=== PATIENT | female | born 1980 | race Caucasian/White ===

== ENCOUNTER 2017-11-06 17:08 | Inpatient (IN) | payer BC ==
[2017-11-06] MEDS ORDERED: Sodium Chloride 0.9% 10 ML Syringe FLUSH PRN (18:02)
[2017-11-06] MEDS ORDERED: Ondansetron 4 MG/2 ML SDV IV PRN (18:02)
--- NOTE | 2017-11-06 18:51 | PCM.LDHP ---
L&D History of Present Illness - General Date of Service: 11/06/17 Admit Problem/Dx: Patient Status Order with Admit Dx/Problem 11/06/17 18:02 Patient Status [ADT] Routine Admission Diagnosis/Problem Admission Diagnosis/Problem Rhabdomyolysis Source of Information: Patient History Limitations: Reports: No Limitations - History of Present Illness Introduction:: Patient is a 37-year-old 002 female at 16 weeks and 3 days (HUE 04/20/2018) who presented to clinic after having worsening muscle soreness. Reports that this muscle soreness started on Friday after she did some resistance band workouts. She first started noticing some of the soreness in the evening. Worsened over the last several days and has had mild to moderate whole-body muscle soreness. The pain is worst in her right arm and she has had difficulty bending that arm. She is also noticed some decreased weakness in that arm. She has been drinking plenty of water and this has not helped with her symptoms. She denies any fevers or chills. Denies any pain or difficulty with swallowing. Denies any shortness of breath or difficulty with breathing. Denies any significant leg muscle weakness and feels steady with ambulation. She had labs drawn in the clinic today that showed an elevated creatine kinase level of 4400. Patient has never had anything similar to this in the past. She did have mild compartment syndrome in left lower leg in June 2016 after she had a fracture of the tibia that was present for 1.5 weeks or so. No other complications with this except for advancement age. She reports that she had genetic screening testing performed at approximately 9 weeks but the fraction of DNA was too low to be analyzed. She is having this test repeated at this time but results have not returned. Patient has routine care with Dr. Cameron at the [facility] in [place], [place]. She reports that she denies feeling some movement. Denies any abdominal pain, contractions or pelvic cramping. Denies any leaking fluid or vaginal bleeding. Quality: Reports: Ache, Pressure, Throbbing Severity: Moderate Context: Reports: Lifting, Exertion. Denies: Trauma Improves with: Reports: Immobilization, Rest Worsens with: Reports: Movement Past Medical History - Past Surgical History Musculoskeletal Surgical History: Reports: Other (See Below) (Bunion surgery) Social & Family History - Family History Family Medical History: Noncontributory - Tobacco Use Smoking Status *Q: Never Smoker - Alcohol Use Alcohol Use History: No - Recreational Drug Use Recreational Drug Use: No - Living Situation & Occupation Occupation: Employed H&P Review of Systems - Review of Systems: Review Of Systems: See Below General: Reports: Weakness. Denies: Fever, Chills, Malaise HEENT: Denies: Visual Changes Pulmonary: Denies: Shortness of Breath, Wheezing Cardiovascular: Denies: Chest Pain, Palpitations, Lightheadedness Gastrointestinal: Denies: Abdominal Pain, Constipation, Diarrhea, Difficulty Swallowing, Nausea, Vomiting Genitourinary: Denies: Dysuria, Frequency, Burning, Pain, Urgency Musculoskeletal: Reports: Muscle Pain (Whole body but worst and right upper arm) . Denies: Joint Pain Skin: Denies: Rash, Lesions Psychiatric: Denies: Confusion Neurological: Denies: Dizziness, Headache, Difficulty Walking L&D Exam - Exam Exam: See Below - OB Specific Contraction Duration (sec): None Contraction Frequency (min): None Movement: Active Heart Tones: Present Heart Tones per Min: 145 - Exam General: Alert, Oriented, Cooperative HEENT: Conjunctiva Clear, EOMI Neck: Supple, Trachea Midline Lungs: Clear to Auscultation, Normal Respiratory Effort Cardiovascular: Regular Rate, Regular Rhythm GI/Abdominal Exam: Soft, Non-Tender, No Distention Back Exam: Normal Inspection, Full Range of Motion. No: CVA Tenderness (L), CVA Tenderness (R) Extremities: Normal Inspection, Normal Range of Motion, No Pedal Edema, Other ( Decreased muscle strength with extension and flexion at right elbow, remainder of extremities with normal strength) Skin: Warm, Dry Psychiatric: Alert, Normal Affect, Normal Mood - Patient Data Lab Results Last 24 hrs: CBC 11/06/2017 at 12: 40 p.m. WBC: 6.58 Hemoglobin: Total 0.0 Hematocrit: 34.7 Platelets: 201 CMP Sodium: 140 Potassium: 3.6 Chloride: 105 Carbon dioxide: 23 BUN: 10 Creatinine: 0.6 Calcium: 9.0 Albumin: 3.4 AST 89 ALT 41 Alkaline phosphatase: 67 Creatine kinase: 4487 - Problem List (1) Rhabdomyolysis SNOMED Code(s): 467269782 ICD Code: M62.82 - RHABDOMYOLYSIS Status: Acute Current Visit: Yes (2) 17 weeks gestation of SNOMED Code(s): 83826401 ICD Code: Z3A.17 - 17 WEEKS GESTATION OF Status: Acute Current Visit: Yes (3) AMA (advanced maternal age) multigravida 35+ SNOMED Code(s): 879597785 ICD Code: O09.529 - SUPERVISION OF ELDERLY MULTIGRAVIDA, UNSPECIFIED TRIMESTER Status: Acute Current Visit: Yes Problem List Initiated/Reviewed/Updated: Yes Orders Last 24hrs: Active Orders 24 hr Category Date Time Status Patient Status [ADT] Routine ADT 11/06/17 18:02 Ordered Heart Tones [RC] Q4HR Care 11/06/17 18:05 Ordered May Shower [RC] ASDIRECTED Care 11/06/17 18:02 Ordered Notify Provider Vital Signs [RC] ASDIRECTED Care 11/06/17 18:06 Ordered Notify Provider [RC] PRN Care 11/06/17 18:02 Ordered Peripheral IV Care [RC] . DIRECTED Care 11/06/17 18:07 Ordered Up ad Sarah [RC] ASDIRECTED Care 11/06/17 18:02 Ordered Vital Signs [RC] PER UNIT ROUTINE Care 11/06/17 18:02 Ordered Regular Diet [DIET] Diet 11/06/17 Dinner Ordered BMP [BASIC METABOLIC PANEL,BMP] [CHEM] Timed Lab 11/07/17 08:00 Ordered CBC WITH AUTO DIFF [HEME] Timed Lab 11/07/17 08:00 Ordered CREATINE KINASE,CK [CHEM] Timed Lab 11/07/17 02:00 Ordered CREATINE KINASE,CK [CHEM] Timed Lab 11/07/17 08:00 Ordered URINALYSIS W/MICROSCOPIC [UA W/MICROSCOPIC] [URIN] Lab 11/06/17 18:35 Uncollected Routine Lactated Ringers [Ringers, Lactated] 1,000 ml Med 11/06/17 18:15 Ordered IV ASDIRECTED Ondansetron [Zofran] Med 11/06/17 18:02 Ordered 4 mg IV Q4H PRN Vit with Ca/FA/Iron [ Plus Iron] Med 11/07/17 09:00 Ordered 1 each PO DAILY Sodium Chloride 0.9% [Saline Flush] Med 11/06/17 18:02 Ordered 10 ml FLUSH ASDIRECTED PRN Peripheral IV Insertion Adult [OM.PC] Routine Oth 11/06/17 18:02 Ordered Resuscitation Status Routine Resus Stat 11/06/17 18:02 Ordered Medication Orders Lactated Ringer's (Ringers, Lactated) 1,000 mls @ 300 mls/hr IV ASDIRECTED JULIÁN Stop: 11/07/17 21:34 Ondansetron HCl (Zofran) 4 mg IV Q4H PRN PRN Reason: Nausea/Vomiting Prenat Multivit/Engineering Project Manager/Iron/Folic Ac ( Plus Iron) 1 each PO DAILY JULIÁN Sodium Chloride (Saline Flush) 10 ml FLUSH ASDIRECTED PRN PRN Reason: Keep Vein Open Assessment/Plan Comment:: * 1. Rhabdomyolysis - most likely diagnosis based on elevated creatine kinase of 4487. Possible that this is a result of exercise induced rhabdomyolysis from 11/04/2017, that may have been exacerbated due to hypokalemia. This is possible due to increased risk of hypokalemia induced rhabdomyolysis and . Is also possible that she may have had a viral illness that led to this although patient is not having any symptoms of a viral illness other than the rhabdomyolysis. At this time recommend for patient to have decreased physical activity with mostly bed rest with up to the bathroom. We will start an IV and give aggressive fluid hydration with lactated Ringer's at 300 mL/ hour. Plan is to recheck creatine kinase at 0200 on 11/07/2017 and possibly continue IV fluid rehydration throughout the night versus aggressive oral rehydration. Likely plan to continue IV as patient may not be able to have increased amounts oral rehydration during the night as she will possibly be sleeping at that time. Will plan to recheck labs including CBC, CMP and creatine kinase tomorrow morning at 0800. If creatine kinase level is below 1000 will plan to discharge at that time with recommendations for decreased physical activity for short while and increased oral rehydration. If creatine kinase level is increased at 0200 then will give 1 L of D5W with 3 ampules of sodium bicarbonate at 300 mL/h. * 2. - patient is 16 weeks 3 days by stated HUE of 04/20/2018. Continue on vitamin. Will check heart tones every 4 hours while she is hospitalized. No other significant concerns with the at this time. Will discuss with patient's INSURANCE BROKER, Dr. Cameron, when she would like to see her next and if there is any additional labs that she would like us to run before that appointment when patient is discharged. Patient's next scheduled appointment is on approximately 11/24/2017. Lauri Moreno M.D. 7:09 PM 11/06/2017
[2017-11-06] MEDS: Lactated Ringers 1,000 ML IV SCH ×2 (21:34→21:35)
[2017-11-07] MEDS ORDERED: Lactated Ringers 1,000 ML IV SCH (03:30)
[2017-11-07] MEDS ORDERED: Acetaminophen 325 MG Tab PO PRN (04:01)
[2017-11-07] MEDS ORDERED: Sodium Bicarbonate 150 MEQ in Dextrose 5% in Water 1,000 ML IV SCH ×2 (05:00)
--- NOTE | 2017-11-07 08:53 | PCM.SN ---
- Free Text/Narrative Note: Daily Progress Note Subjective: Patient reports feeling well overall. Pain in arm improved from last night but still feels sore. Continues to have whole body soreness. Tolerating regular diet. Voiding without difficulty. Ambulating without difficulty. Reports good movement. Denies any abdominal cramping, pelvic cramping or pelvic pain. Denies any vaginal bleeding or leakage of fluid. Objective: Vitals Vital Signs - 24 hr 11/06/17 11/06/17 18:02 19:37 Temperature 36.7 C Pulse, 78 Peripheral Respiratory 16 Rate Blood Pressure 122/79 O2 Sat by Pulse 100 Oximetry heart tones: 150s over night Weight: 76.204 kg -> 77.564 kg (11/07/17 AM) I/O: Intake & Output 11/06/17 11/07/17 11/07/17 22:59 06:59 14:59 Intake Total 3650 Balance 3650 Gen: [No acute distress, alert and oriented] Lungs: [Clear to auscultation bilaterally] Heart: [Regular rate and rhythm] Abdomen: Soft, no tenderness, nondistended Extremities: Decreased range of motion of flexion and extension at the right elbow, mild tenderness in upper arm, remainder of extremities overall nontender Assesment/Plan: 37-year-old at 16 weeks 4 days with non-traumatic rhabdomyolysis * Doing well overall * Continue to closely monitor I's and O's and the patient's weight for concern for possible fluid overload. * Patient with elevation of creatine kinase from 6928-8544 over night. Rechecked this a.m. Result pending at this time. Patient currently being treated with D5W with 3 ampules of sodium bicarbonate added to the solution running at 300 mL/h. Will transition to lactated Ringer's once the 1 L of D5W is completed. * Patient with mild hypokalemia. We will give oral replacement with potassium chloride. * Monitor vitals and heart tones every 4 hours * Anticipate discharge home with drop of creatine kinase to less than 1000 Lauri Moreno MD 10:11 AM 11/07/17
[2017-11-07] MEDS: Prenatal Multivitamin with Calcium/Folic Acid/Iron Tab PO SCH (09:24)
[2017-11-07] MEDS: Lactated Ringers 1,000 ML IV SCH ×3 (09:25→16:04)
[2017-11-07] MEDS: Potassium Chloride 20 MEQ Tab.ER PO SCH ×3 (13:29→23:16)
--- NOTE | 2017-11-07 17:44 | PCM.CONS ---
H&P History of Present Illness - General Date of Service: 11/07/17 Admit Problem/Dx: Patient Status Order with Admit Dx/Problem 11/06/17 18:02 Patient Status [ADT] Routine Admission Diagnosis/Problem Admission Diagnosis/Problem Rhabdomyolysis Source of Information: Patient, Provider, RN, RN Notes Reviewed History Limitations: Reports: No Limitations - History of Present Illness Initial Comments - Free Text/Narative: This is a 37 yo 17th weeks white female ( 002) who came in with complaints of worsening muscle aches/soreness and was found to have a significant CK level of 4400. She was admitted for acute rhabdomyolysis due to excised induced. Patient was admitted yesterday and currently adequately hydrating. Hospital Medicine was consulted for co-management of this patient. 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: Musculoskeletal History: Reports: Other (See Below) Other Musculoskeletal History: see admission diag - Past Surgical History Musculoskeletal Surgical History: Reports: Other (See Below) (Bunion surgery) Social & Family History - Family History Family Medical History: Noncontributory - Tobacco Use Smoking Status *Q: Never Smoker Second Hand Smoke Exposure: No - Caffeine Use Caffeine Use: Reports: Coffee Other Caffeine Use: 1 per day - Recreational Drug Use Recreational Drug Use: No - Living Situation & Occupation Occupation: Employed H&P Review of Systems - Review of Systems: Review Of Systems: See Below General: Denies: Fever, Chills, Malaise, Weakness, Fatigue HEENT: Reports: No Symptoms Pulmonary: Denies: Shortness of Breath Cardiovascular: Denies: Chest Pain, Palpitations, Edema Gastrointestinal: Denies: Abdominal Pain, Constipation, Diarrhea, Decreased Appetite, Nausea, Vomiting Genitourinary: Denies: Dysuria, Burning, Pain, Hematuria, Discharge Musculoskeletal: Reports: Other (Muscle aches/sore on upper extremity) Skin: Denies: Pallor, Diaphoresis, Bruising, Pruritis, Erythema Psychiatric: Denies: Depression, Anxiety, Agitation, Hallucinations Neurological: Denies: Confusion, Difficulty Walking, Weakness, Gait Disturbance Hematologic/Lymphatic: Reports: No Symptoms Immunologic: Reports: No Symptoms Exam - Exam Exam: See Below - Vital Signs Vital Signs: Last Vital Signs Temp 37.3 C 11/07/17 16:08 Pulse 85 11/07/17 16:08 Resp 18 11/07/17 16:08 BP 128/72 11/07/17 16:08 Pulse Ox 100 11/07/17 16:08 Weight: 77.383 kg - Exam General: Alert, Cooperative, Mild Distress, Moderate Distress HEENT: Conjunctiva Clear, EACs Clear, Hearing Intact, Mucosa Moist & [place], Nares Patent, Normal Nasal Septum, Pupils Equal, Pupils Reactive Neck: Supple, Trachea Midline, Full Range of Motion Lungs: Clear to Auscultation, Normal Respiratory Effort Cardiovascular: Regular Rate, Regular Rhythm GI/Abdominal Exam: Normal Bowel Sounds, Soft, Non-Tender, No Organomegaly, No Distention (Female) Exam: Deferred Rectal (Female) Exam: Deferred Back Exam: Normal Inspection, Decreased Range of Motion Extremities: Normal Inspection, Non-Tender, No Pedal Edema, Normal Capillary Refill, Other (limited ROM on upper extremity) Peripheral Pulses: 3+: Posterior Tibial (L), Posterior Tibial (R), Dorsalis Pedis (L), Dorsalis Pedis (R) Skin: Warm, Dry, Intact Neuro Extensive - Mental Status: Oriented x3, Normal Cognition, Memory Intact Neuro Extensive - Motor, Sensory, Reflexes: CN II-XII Intact Psychiatric: Alert, Normal Affect, Normal Mood - Patient Data Lab Results Last 24 hrs: Laboratory Results - last 24 hr 11/06/17 11/07/17 11/07/17 Range/Units 20:15 01:57 08:58 WBC 4.61 (3.98-10.04) K/mm3 RBC 3.78 L (3.98-5.22) M/mm3 Hgb 11.8 (11.2-15.7) gm/L Hct 34.0 L (34.1-44.9) % MCV 89.9 (79.4-94.8) fl MCH 31.2 (25.6-32.2) pg MCHC 34.7 (32.2-35.5) g/dl RDW Std Deviation 43.4 (36.4-46.3) fL Plt Count 178 L (182-369) K/mm3 MPV 10.5 (9.4-12.3) fl Neut % (Auto) 73.1 H (34.0-71.1) % Lymph % (Auto) 18.9 L (19.3-51.7) % [place] % (Auto) 7.2 (4.7-12.5) % Eos % (Auto) 0.4 L (0.7-5.8) Baso % (Auto) 0.2 (0.1-1.2) % Neut # (Auto) 3.37 (1.56-6.13) K/mm3 Lymph # (Auto) 0.87 L (1.18-3.74) K/mm3 [place] # (Auto) 0.33 (0.24-0.36) K/mm3 Eos # (Auto) 0.02 L (0.04-0.36) K/mm3 Baso # (Auto) 0.01 (0.01-0.08) K/mm3 Sodium (136-145) mEq/L Potassium (3.5-5.1) mEq/L Chloride (98-107) mEq/L Carbon Dioxide (21-32) mEq/L Anion Gap (5-15) BUN (7-18) mg/dL Creatinine (0.55-1.02) mg/dL Est Cr Clr Drug Dosing mL/min Estimated GFR (MDRD) (>60) mL/min BUN/Creatinine Ratio (14-18) Glucose (74-106) mg/dL Uric Acid (2.6-6.0) mg/dL Calcium (8.5-10.1) mg/dL Total Bilirubin (0.2-1.0) mg/dL AST (15-37) U/L ALT (14-59) U/L Alkaline Phosphatase (46-116) U/L Creatine Kinase 6292 H (26-192) U/L Total Protein (6.4-8.2) g/dl Albumin (3.4-5.0) g/dl Globulin gm/dL Albumin/Globulin Ratio (1-2) Urine Color Yellow (Yellow) Urine Appearance Clear (Clear) Urine pH 7.0 (5.0-8.0) Ur Specific [place] 1.020 (1.005-1.030) Urine Protein Negative (Negative) Urine Glucose (UA) Negative (Negative) Urine Ketones 3+ H (Negative) Urine Occult Blood Negative (Negative) Urine Nitrite Negative (Negative) Urine Bilirubin Negative (Negative) Urine Urobilinogen 0.2 (0.2-1.0) Ur Leukocyte Esterase 1+ H (Negative) Urine RBC 0-5 (0-5) /hpf Urine WBC 0-5 (0-5) /hpf Urine WBC Clumps Rare (NOT SEEN) /hpf Ur Epithelial Cells 0-5 (0-5) /hpf Urine Bacteria Many H (FEW) /hpf Urine Mucus Not seen (FEW) /hpf 11/07/17 11/07/17 Range/Units 08:58 14:45 WBC (3.98-10.04) K/mm3 RBC (3.98-5.22) M/mm3 Hgb (11.2-15.7) gm/L Hct (34.1-44.9) % MCV (79.4-94.8) fl MCH (25.6-32.2) pg MCHC (32.2-35.5) g/dl RDW Std Deviation (36.4-46.3) fL Plt Count (182-369) K/mm3 MPV (9.4-12.3) fl Neut % (Auto) (34.0-71.1) % Lymph % (Auto) (19.3-51.7) % [place] % (Auto) (4.7-12.5) % Eos % (Auto) (0.7-5.8) Baso % (Auto) (0.1-1.2) % Neut # (Auto) (1.56-6.13) K/mm3 Lymph # (Auto) (1.18-3.74) K/mm3 [place] # (Auto) (0.24-0.36) K/mm3 Eos # (Auto) (0.04-0.36) K/mm3 Baso # (Auto) (0.01-0.08) K/mm3 Sodium 140 (136-145) mEq/L Potassium 3.2 L (3.5-5.1) mEq/L Chloride 106 (98-107) mEq/L Carbon Dioxide 26 (21-32) mEq/L Anion Gap 11.2 (5-15) BUN 4 L (7-18) mg/dL Creatinine 0.6 (0.55-1.02) mg/dL Est Cr Clr Drug Dosing 110.86 mL/min Estimated GFR (MDRD) > 60 (>60) mL/min BUN/Creatinine Ratio 6.7 L (14-18) Glucose 86 (74-106) mg/dL Uric Acid 2.4 L (2.6-6.0) mg/dL Calcium 8.4 L (8.5-10.1) mg/dL Total Bilirubin 0.3 (0.2-1.0) mg/dL AST 165 H (15-37) U/L ALT 63 H (14-59) U/L Alkaline Phosphatase 60 (46-116) U/L Creatine Kinase 6768 H 7594 H (26-192) U/L Total Protein 6.2 L (6.4-8.2) g/dl Albumin 2.9 L (3.4-5.0) g/dl Globulin 3.3 gm/dL Albumin/Globulin Ratio 0.9 L (1-2) Urine Color (Yellow) Urine Appearance (Clear) Urine pH (5.0-8.0) Ur Specific [place] (1.005-1.030) Urine Protein (Negative) Urine Glucose (UA) (Negative) Urine Ketones (Negative) Urine Occult Blood (Negative) Urine Nitrite (Negative) Urine Bilirubin (Negative) Urine Urobilinogen (0.2-1.0) Ur Leukocyte Esterase (Negative) Urine RBC (0-5) /hpf Urine WBC (0-5) /hpf Urine WBC Clumps (NOT SEEN) /hpf Ur Epithelial Cells (0-5) /hpf Urine Bacteria (FEW) /hpf Urine Mucus (FEW) /hpf Result Diagrams: 11/07/17 08:58 11/07/17 08:58 Consult PN Assessment/Plan Procedures: Procedures ASSAY OF CK (CPK) (01/01/17) ASSAY OF MYOGLOBIN (01/01/17) COMPLETE CBC W/AUTO DIFF WBC (01/01/17) COMPREHEN METABOLIC PANEL (01/01/17) ROUTINE VENIPUNCTURE (01/01/17) TISSUE EXAM BY PATHOLOGIST (02/28/15) X-RAY EXAM OF LOWER LEG (12/27/16) Problem List Initiated/Reviewed/Updated: Yes My Orders Last 24 Hours: My Active Orders 11/07/17 16:30 Sodium Chloride 0.9% [Normal Saline] 1,000 ml IV ASDIRECTED Plan: Assessment/Plan: Rhabdomyolysis 2/2 Exercise Induced - She is adequately hydrating with excellent renal function - We recommend switching to normal saline; no benefit of using LR or D5W over normal saline - The goal in managing rhabdomyolysis is to prevent kidney injury and monitor e-lytes abnormality - Offered huynh catheter so she can rest well over night but refused it - Start NS at 300 cc/hr for IVF after current fluid is done - Recommend at this time to avoid Acetaminophen, Steroids, Diuretics and Anti -cholinergics if all possible - Continue daily BMP and CK Mild Hypokalemia - K 3.2 this am - Pharmacy to replete and monitor 17th weeks Gestation Of - Defer to Primary Team From the hospitalist team, we would like to thank Dr. Moreno for the opportunity to participate in the management of this patient. We will follow her along with you. Requesting Provider: Dr. Moreno Date Consult Requested: 11/07/17 Reason for Consult: Rhabdomyolysis Patient History Reviewed: Yes Admission H&P Reviewed: Yes Consult Result/Summary:: Stable Notified Requestor: Yes Time Spent (in minutes): 30
[2017-11-07] MEDS: Sodium Chloride 0.9% 1,000 ML IV SCH ×2 (17:54→21:27)
[2017-11-08] MEDS: Sodium Chloride 0.9% 1,000 ML IV SCH ×9 (00:20→22:27)
--- NOTE | 2017-11-08 07:08 | PCM.CONSN ---
- General Info Date of Service: 11/08/17 Admission Dx/Problem (Free Text): Patient Status Order with Admit Dx/Problem 11/06/17 18:02 Patient Status [ADT] Routine Admission Diagnosis/Problem Admission Diagnosis/Problem Rhabdomyolysis Subjective Update: Follow Up Functional Status: Reports: Pain Controlled, Tolerating Diet, Ambulating, Urinating. Denies: New Symptoms - Review of Systems General: Denies: Fever, Weakness, Fatigue, Malaise, Chills HEENT: Reports: No Symptoms Pulmonary: Denies: Shortness of Breath Cardiovascular: Denies: Chest Pain, Palpitations, Dyspnea on Exertion, Edema, Lightheadedness Gastrointestinal: Denies: Abdominal Pain, Nausea, Vomiting Genitourinary: Reports: No Symptoms Musculoskeletal: Reports: No Symptoms Skin: Denies: Cyanosis, Pallor, Diaphoresis, Bruising Neurological: Denies: Confusion, Difficulty Walking, Weakness, Gait Disturbance Psychiatric: Denies: Depression, Anxiety, Agitation, Hallucinations Systems Review Comment:: No significant overnight or acute issues. She is doing pretty well. She reports no new complaints. - Patient Data Vitals - Most Recent: Last Vital Signs Temp 37.5 C 11/08/17 03:18 Pulse 73 11/08/17 03:18 Resp 15 11/08/17 03:18 BP 91/68 11/08/17 03:18 Pulse Ox 97 11/08/17 03:18 Weight - Most Recent: 77.383 kg I&O - Last 24 Hours: Intake & Output 11/07/17 11/08/17 11/08/17 22:59 06:59 14:59 Intake Total 2000 Output Total 3350 1000 Balance -3350 1000 Lab Results Last 24 Hours: Laboratory Results - last 24 hr 11/07/17 11/07/17 11/07/17 Range/Units 08:58 08:58 14:45 WBC 4.61 (3.98-10.04) K/mm3 RBC 3.78 L (3.98-5.22) M/mm3 Hgb 11.8 (11.2-15.7) gm/L Hct 34.0 L (34.1-44.9) % MCV 89.9 (79.4-94.8) fl MCH 31.2 (25.6-32.2) pg MCHC 34.7 (32.2-35.5) g/dl RDW Std Deviation 43.4 (36.4-46.3) fL Plt Count 178 L (182-369) K/mm3 MPV 10.5 (9.4-12.3) fl Neut % (Auto) 73.1 H (34.0-71.1) % Lymph % (Auto) 18.9 L (19.3-51.7) % [place] % (Auto) 7.2 (4.7-12.5) % Eos % (Auto) 0.4 L (0.7-5.8) Baso % (Auto) 0.2 (0.1-1.2) % Neut # (Auto) 3.37 (1.56-6.13) K/mm3 Lymph # (Auto) 0.87 L (1.18-3.74) K/mm3 [place] # (Auto) 0.33 (0.24-0.36) K/mm3 Eos # (Auto) 0.02 L (0.04-0.36) K/mm3 Baso # (Auto) 0.01 (0.01-0.08) K/mm3 Sodium 140 (136-145) mEq/L Potassium 3.2 L (3.5-5.1) mEq/L Chloride 106 (98-107) mEq/L Carbon Dioxide 26 (21-32) mEq/L Anion Gap 11.2 (5-15) BUN 4 L (7-18) mg/dL Creatinine 0.6 (0.55-1.02) mg/dL Est Cr Clr Drug Dosing 110.86 mL/min Estimated GFR (MDRD) > 60 (>60) mL/min BUN/Creatinine Ratio 6.7 L (14-18) Glucose 86 (74-106) mg/dL Uric Acid 2.4 L (2.6-6.0) mg/dL Calcium 8.4 L (8.5-10.1) mg/dL Total Bilirubin 0.3 (0.2-1.0) mg/dL AST 165 H (15-37) U/L ALT 63 H (14-59) U/L Alkaline Phosphatase 60 (46-116) U/L Creatine Kinase 6768 H 7594 H (26-192) U/L Total Protein 6.2 L (6.4-8.2) g/dl Albumin 2.9 L (3.4-5.0) g/dl Globulin 3.3 gm/dL Albumin/Globulin Ratio 0.9 L (1-2) 11/08/17 Range/Units 06:20 WBC (3.98-10.04) K/mm3 RBC (3.98-5.22) M/mm3 Hgb (11.2-15.7) gm/L Hct (34.1-44.9) % MCV (79.4-94.8) fl MCH (25.6-32.2) pg MCHC (32.2-35.5) g/dl RDW Std Deviation (36.4-46.3) fL Plt Count (182-369) K/mm3 MPV (9.4-12.3) fl Neut % (Auto) (34.0-71.1) % Lymph % (Auto) (19.3-51.7) % [place] % (Auto) (4.7-12.5) % Eos % (Auto) (0.7-5.8) Baso % (Auto) (0.1-1.2) % Neut # (Auto) (1.56-6.13) K/mm3 Lymph # (Auto) (1.18-3.74) K/mm3 [place] # (Auto) (0.24-0.36) K/mm3 Eos # (Auto) (0.04-0.36) K/mm3 Baso # (Auto) (0.01-0.08) K/mm3 Sodium 138 (136-145) mEq/L Potassium 3.6 (3.5-5.1) mEq/L Chloride 108 H (98-107) mEq/L Carbon Dioxide 20 L (21-32) mEq/L Anion Gap 13.6 (5-15) BUN 5 L (7-18) mg/dL Creatinine 0.4 L (0.55-1.02) mg/dL Est Cr Clr Drug Dosing 166.28 mL/min Estimated GFR (MDRD) > 60 (>60) mL/min BUN/Creatinine Ratio 12.5 L (14-18) Glucose 83 (74-106) mg/dL Uric Acid (2.6-6.0) mg/dL Calcium 7.7 L (8.5-10.1) mg/dL Total Bilirubin (0.2-1.0) mg/dL AST (15-37) U/L ALT (14-59) U/L Alkaline Phosphatase (46-116) U/L Creatine Kinase 6547 H (26-192) U/L Total Protein (6.4-8.2) g/dl Albumin (3.4-5.0) g/dl Globulin gm/dL Albumin/Globulin Ratio (1-2) Med Orders - Current: Current Medications Acetaminophen (Tylenol) 650 mg PO Q6H PRN PRN Reason: Pain/Fever Sodium Chloride (Normal Saline) 1,000 mls @ 150 mls/hr IV ASDIRECTED [facility] Last Admin: 11/08/17 06:14 Dose: 350 mls/hr Ondansetron HCl (Zofran) 4 mg IV Q4H PRN PRN Reason: Nausea/Vomiting Potassium Chloride (Pharmacy To Dose - Potassium Replacement) 0 dose .XX ASDIRECTED PRN PRN Reason: RX TO WATCH K LEVELS Prenat Multivit/[place]/Iron/Folic Ac ( Plus Iron) 1 each PO DAILY [facility] Last Admin: 11/07/17 09:24 Dose: 1 each Sodium Chloride (Saline Flush) 10 ml FLUSH ASDIRECTED PRN PRN Reason: Keep Vein Open Discontinued Medications Lactated Ringer's (Ringers, Lactated) 1,000 mls @ 300 mls/hr IV ASDIRECTED [facility] Stop: 11/07/17 21:34 Last Admin: 11/06/17 21:35 Dose: 300 mls/hr Lactated Ringer's (Ringers, Lactated) 1,000 mls @ 300 mls/hr IV ASDIRECTED [facility] Last Admin: 11/07/17 01:20 Dose: 300 mls/hr Sodium Bicarbonate 150 meq/ (Dextrose/Water) 1,150 mls @ 300 mls/hr IV ASDIRECTED [facility] Stop: 11/07/17 08:49 Last Admin: 11/07/17 05:31 Dose: 300 mls/hr Lactated Ringer's (Ringers, Lactated) 1,000 mls @ 300 mls/hr IV ASDIRECTED [facility] Last Admin: 11/07/17 16:04 Dose: 300 mls/hr Potassium Chloride (Klor-Con M20) 40 meq PO Q4H [facility] Stop: 11/07/17 18:01 Last Admin: 11/07/17 23:16 Dose: Not Given - Exam General: Alert, Oriented, Cooperative, No Acute Distress HEENT: Pupils Equal, Pupils Reactive, EOMI, Mucous Membr. Moist/[place] Neck: Supple, Trachea Midline Lungs: Clear to Auscultation, Normal Respiratory Effort Cardiovascular: Regular Rate, Regular Rhythm GI/Abdominal Exam: Normal Bowel Sounds, Soft, Non-Tender, No Organomegaly, No Distention, No Abnormal Bruit, No Mass (Female) Exam: Deferred Back Exam: Normal Inspection, Decreased Range of Motion Extremities: Normal Inspection, Normal Range of Motion, Non-Tender, No Pedal Edema, Normal Capillary Refill Peripheral Pulses: 3+: Posterior Tibial (L), Posterior Tibial (R), Dorsalis Pedis (L), Dorsalis Pedis (R) Skin: Warm, Dry, Intact Neurological: No New Focal Deficit Psy/Mental Status: Alert, Normal Affect, Normal Mood Consult PN Assessment/Plan Procedures: Procedures ASSAY OF CK (CPK) (11/06/17) ASSAY OF MYOGLOBIN (01/01/17) COMPLETE CBC AUTOMATED (11/06/17) COMPLETE CBC W/AUTO DIFF WBC (01/01/17) COMPREHEN METABOLIC PANEL (11/06/17) ROUTINE VENIPUNCTURE (11/06/17) TISSUE EXAM BY PATHOLOGIST (02/28/15) X-RAY EXAM OF LOWER LEG (12/27/16) Problem List Initiated/Reviewed/Updated: Yes My Orders Last 24 Hours: My Active Orders 11/07/17 16:30 Sodium Chloride 0.9% [Normal Saline] 1,000 ml IV ASDIRECTED Plan: Assessment/Plan: Rhabdomyolysis 2/2 Exercise Induced - CK is now 6547 - Good renal function - Ahe is responding to treatment - Continue NS at 350 cc/hr for hydration - No Acetaminophen, Steroids, Diuretics and Anti-cholinergics if all possible - Continue daily BMP and CK - Consider discharge once level is near or at her baseline CK level on admission Hypocalcemia - Ca 7.7 - Pharmacy to replete and monitor 17th weeks Gestation Of - Defer to Primary Team Resolved: S/p Mild Hypokalemia - K 3.2 --> 3.6 - Pharmacy to replete and monitor From the hospitalist standpoint, we have no other recommendations but to continue current treatment
[2017-11-08] MEDS: Prenatal Multivitamin with Calcium/Folic Acid/Iron Tab PO SCH (08:48)
[2017-11-08] MEDS: Calcium Carbonate/Vitamin D3 1500 MG-200 Units Tab PO SCH ×3 (09:49→20:04)
[2017-11-08] MEDS: Potassium Chloride 20 MEQ Tab.ER PO SCH ×2 (09:49→14:15)
--- NOTE | 2017-11-08 09:55 | PCM.SN ---
- Free Text/Narrative Note: Daily Progress Note Subjective: Patient reports feeling well overall. Pain in arm overall resolved and has increased range of motion with extension of the right arm. Reports her whole body soreness is resolved at this time. Tolerating regular diet. Voiding without difficulty. Ambulating without difficulty. Reports good movement. Denies any abdominal cramping, pelvic cramping or pelvic pain. Denies any vaginal bleeding or leakage of fluid. Objective: Vitals Vital Signs - 24 hr 11/07/17 11/07/17 11/07/17 12:52 16:08 18:53 Temperature 36.9 C 37.3 C 36.5 C Pulse, 78 85 76 Peripheral Respiratory 18 18 Rate Blood Pressure 106/70 128/72 130/83 O2 Sat by Pulse 100 100 97 Oximetry 11/07/17 11/08/17 11/08/17 21:09 03:18 08:51 Temperature 37.1 C 37.5 C 37.3 C Pulse, 75 73 97 Peripheral Respiratory 15 15 20 Rate Blood Pressure 102/72 91/68 134/86 O2 Sat by Pulse 100 97 98 Oximetry heart tones: 130s-140s over night Weight: 76.204 kg -> 77.564 kg (11/07/17 AM) I/O: Intake & Output 11/06/17 11/07/17 11/08/17 11/09/17 06:59 06:59 06:59 06:59 Intake Total 3650 4240 Output Total 7250 Balance 3650 -3010 Gen: No acute distress, alert and oriented Lungs: Clear to auscultation bilaterally Heart: Regular rate and rhythm Abdomen: Soft, no tenderness, nondistended Extremities: Normal flexion at the right elbow with approximately 170 of extension, extremities nontender Laboratory Results - last 24 hr 11/07/17 11/07/17 11/08/17 Range/Units 08:58 14:45 06:20 Sodium 138 (136-145) mEq/L Potassium 3.6 (3.5-5.1) mEq/L Chloride 108 H (98-107) mEq/L Carbon Dioxide 20 L (21-32) mEq/L Anion Gap 13.6 (5-15) BUN 5 L (7-18) mg/dL Creatinine 0.4 L (0.55-1.02) mg/dL Est Cr Clr Drug Dosing 166.28 mL/min Estimated GFR (MDRD) > 60 (>60) mL/min BUN/Creatinine Ratio 12.5 L (14-18) Glucose 83 (74-106) mg/dL Calcium 7.7 L (8.5-10.1) mg/dL Creatine Kinase 6768 H 7594 H 6547 H (26-192) U/L Assesment/Plan: 37-year-old at 16 weeks 5 days with non-traumatic rhabdomyolysis, HD #3 * Doing well overall * Continue to closely monitor I's and O's and the patient's weight for concern for possible fluid overload. * Patient with drop in her creatine kinase from 7594 to 6547 over night. Patient currently being treated with normal saline at 350 mL/h. Consulted hospitalist, Dr. Diego, for assistance with management of rhabdomyolysis. He recommends to check creatine kinase levels daily and to monitor electrolytes for abnormalities and replace as needed. * Mild hypokalemia resolved at this time. We will continue to monitor closely. * Monitor vitals and heart tones every 4 hours * Anticipate discharge home with drop of creatine kinase to initial value of approximately 4400. If she is discharged home at that time recommended for her to continue to have daily lab draws and assessment as an outpatient status. Lauri Moreno MD 9:52 AM 11/08/17
[2017-11-09] MEDS: Sodium Chloride 0.9% 1,000 ML IV SCH ×3 (01:16→05:05)
--- NOTE | 2017-11-09 05:55 | PCM.CONSN ---
- General Info Date of Service: 11/09/17 Admission Dx/Problem (Free Text): Patient Status Order with Admit Dx/Problem 11/06/17 18:02 Patient Status [ADT] Routine Admission Diagnosis/Problem Admission Diagnosis/Problem Rhabdomyolysis Subjective Update: Follow Up Functional Status: Reports: Pain Controlled, Tolerating Diet, Ambulating, Urinating. Denies: New Symptoms - Review of Systems General: Denies: Fever, Weakness, Fatigue, Malaise, Chills HEENT: Reports: No Symptoms Pulmonary: Denies: Shortness of Breath, Pleuritic Chest Pain Cardiovascular: Denies: Chest Pain, Palpitations, Dyspnea on Exertion, Lightheadedness Gastrointestinal: Denies: Abdominal Pain, Nausea, Vomiting Genitourinary: Reports: No Symptoms Musculoskeletal: Reports: No Symptoms Skin: Denies: Cyanosis, Pallor, Diaphoresis, Bruising, Pruritis Neurological: Denies: Confusion, Difficulty Walking, Weakness, Gait Disturbance Psychiatric: Denies: Depression, Anxiety, Agitation, Hallucinations Systems Review Comment:: No overnight or acute or issues. She continues to do well. She reports no new complaints. - Patient Data Vitals - Most Recent: Last Vital Signs Temp 36.7 C 11/09/17 04:04 Pulse 70 11/09/17 04:04 Resp 15 11/09/17 04:04 BP 104/57 L 11/09/17 04:04 Pulse Ox 98 11/09/17 04:04 Weight - Most Recent: 79.016 kg I&O - Last 24 Hours: Intake & Output 11/08/17 11/08/17 11/09/17 14:59 22:59 06:59 Intake Total 1120 2600 5000 Output Total 4300 2700 2425 Balance -3180 -100 2575 Lab Results Last 24 Hours: Laboratory Results - last 24 hr 11/08/17 Range/Units 06:20 Sodium 138 (136-145) mEq/L Potassium 3.6 (3.5-5.1) mEq/L Chloride 108 H (98-107) mEq/L Carbon Dioxide 20 L (21-32) mEq/L Anion Gap 13.6 (5-15) BUN 5 L (7-18) mg/dL Creatinine 0.4 L (0.55-1.02) mg/dL Est Cr Clr Drug Dosing 166.28 mL/min Estimated GFR (MDRD) > 60 (>60) mL/min BUN/Creatinine Ratio 12.5 L (14-18) Glucose 83 (74-106) mg/dL Calcium 7.7 L (8.5-10.1) mg/dL Creatine Kinase 6547 H (26-192) U/L Med Orders - Current: Current Medications Acetaminophen (Tylenol) 650 mg PO Q6H PRN PRN Reason: Pain/Fever Calcium Carbonate (Calcium Carbonate/Vitamin D 1500 Mg-200 Unit) 1 tab PO TID [facility] Last Admin: 11/08/17 20:04 Dose: 1 tab Sodium Chloride (Normal Saline) 1,000 mls @ 150 mls/hr IV ASDIRECTED [facility] Last Admin: 11/09/17 05:05 Dose: 350 mls/hr Ondansetron HCl (Zofran) 4 mg IV Q4H PRN PRN Reason: Nausea/Vomiting Potassium Chloride (Pharmacy To Dose - Potassium Replacement) 0 dose .XX ASDIRECTED PRN PRN Reason: RX TO WATCH K LEVELS Prenat Multivit/[employer]/Iron/Folic Ac ( Plus Iron) 1 each PO DAILY [facility] Last Admin: 11/08/17 08:48 Dose: 1 each Sodium Chloride (Saline Flush) 10 ml FLUSH ASDIRECTED PRN PRN Reason: Keep Vein Open Discontinued Medications Lactated Ringer's (Ringers, Lactated) 1,000 mls @ 300 mls/hr IV ASDIRECTED [facility] Stop: 11/07/17 21:34 Last Admin: 11/06/17 21:35 Dose: 300 mls/hr Lactated Ringer's (Ringers, Lactated) 1,000 mls @ 300 mls/hr IV ASDIRECTED [facility] Last Admin: 11/07/17 01:20 Dose: 300 mls/hr Sodium Bicarbonate 150 meq/ (Dextrose/Water) 1,150 mls @ 300 mls/hr IV ASDIRECTED [facility] Stop: 11/07/17 08:49 Last Admin: 11/07/17 05:31 Dose: 300 mls/hr Lactated Ringer's (Ringers, Lactated) 1,000 mls @ 300 mls/hr IV ASDIRECTED [facility] Last Admin: 11/07/17 16:04 Dose: 300 mls/hr Potassium Chloride (Klor-Con M20) 40 meq PO Q4H [facility] Stop: 11/07/17 18:01 Last Admin: 11/07/17 23:16 Dose: Not Given Potassium Chloride (Klor-Con M20) 40 meq PO Q4H [facility] Stop: 11/08/17 14:01 Last Admin: 11/08/17 14:15 Dose: 40 meq - Exam General: Alert, Oriented, Cooperative, No Acute Distress HEENT: Pupils Equal, Pupils Reactive, EOMI, Mucous Membr. Moist/[place] Neck: Supple, Trachea Midline, No JVD Lungs: Clear to Auscultation, Normal Respiratory Effort Cardiovascular: Regular Rate, Regular Rhythm GI/Abdominal Exam: Normal Bowel Sounds, Soft, Non-Tender, No Organomegaly, No Distention, No Abnormal Bruit, No Mass (Female) Exam: Deferred Back Exam: Normal Inspection, Decreased Range of Motion Extremities: Normal Inspection, Normal Range of Motion, Non-Tender, No Pedal Edema, Normal Capillary Refill Peripheral Pulses: 3+: Dorsalis Pedis (L), Dorsalis Pedis (R) Skin: Warm, Dry, Intact Neurological: No New Focal Deficit Psy/Mental Status: Alert, Normal Affect, Normal Mood Consult PN Assessment/Plan Procedures: Procedures ASSAY OF CK (CPK) (11/06/17) ASSAY OF MYOGLOBIN (01/01/17) COMPLETE CBC AUTOMATED (11/06/17) COMPLETE CBC W/AUTO DIFF WBC (01/01/17) COMPREHEN METABOLIC PANEL (11/06/17) ROUTINE VENIPUNCTURE (11/06/17) TISSUE EXAM BY PATHOLOGIST (02/28/15) X-RAY EXAM OF LOWER LEG (12/27/16) Problem List Initiated/Reviewed/Updated: Yes My Orders Last 24 Hours: My Active Orders 11/08/17 09:15 Calcium Carbonate/Vitamin D3 [Calcium Carbonate/Vitamin D 1500 MG-200 Unit] 1 tab PO TID Plan: Assessment/Plan: Rhabdomyolysis 2/2 Exercise Induced - CK is now 6547 --> 4121 (4487 baseline) - Good renal function - She is responding to treatment - Continue NS at 350 cc/hr for hydration - No Acetaminophen, Steroids, Diuretics and Anti-cholinergics if all possible Hypocalcemia - Ca 7.7, Same - Pharmacy to replete and monitor Mild Hypokalemia - K 3.4 - Pharmacy to replete and monitor 17th weeks Gestation Of - Defer to Primary Team From the hospitalist standpoint, patient is okay to d/c. We are signing off her case. Please feel free to re-consult us if you still need further help.
--- NOTE | 2017-11-09 07:33 | PCM.SN ---
- Free Text/Narrative Note: Daily Progress Note Subjective: Patient reports feeling well overall and continuing to improve. Pain in arm resolved and has increased range of motion with extension of the right arm. Denies any body aches or soreness. Tolerating regular diet. Voiding without difficulty. Ambulating without difficulty. Reports good movement. Denies any abdominal cramping, pelvic cramping or pelvic pain. Denies any vaginal bleeding or leakage of fluid. Objective: Vitals Vital Signs - 24 hr 11/07/17 11/07/17 11/07/17 12:52 16:08 18:53 Temperature 36.9 C 37.3 C 36.5 C Pulse, 78 85 76 Peripheral Respiratory 18 18 Rate Blood Pressure 106/70 128/72 130/83 O2 Sat by Pulse 100 100 97 Oximetry 11/07/17 11/08/17 11/08/17 21:09 03:18 08:51 Temperature 37.1 C 37.5 C 37.3 C Pulse, 75 73 97 Peripheral Respiratory 15 15 20 Rate Blood Pressure 102/72 91/68 134/86 O2 Sat by Pulse 100 97 98 Oximetry heart tones: 140s over night Weight: 76.204 kg -> 77.564 kg (11/07/17 AM) -> 79.016 kg (11/09/17 AM) I/O: Intake & Output 11/07/17 11/08/17 11/09/17 11/10/17 06:59 06:59 06:59 06:59 Intake Total 3650 4240 9160 Output Total 7289 9429 Balance 7520 -7868 -490 Gen: No acute distress, alert and oriented Lungs: Clear to auscultation bilaterally Heart: Regular rate and rhythm Abdomen: Soft, no tenderness, nondistended Extremities: Normal flexion at the right elbow with approximately 175 of extension, extremities nontender Laboratory Results - last 24 hr 11/09/17 Range/Units 05:59 Sodium 139 (136-145) mEq/L Potassium 3.4 L (3.5-5.1) mEq/L Chloride 108 H (98-107) mEq/L Carbon Dioxide 21 (21-32) mEq/L Anion Gap 13.4 (5-15) BUN 4 L (7-18) mg/dL Creatinine 0.5 L (0.55-1.02) mg/dL Est Cr Clr Drug Dosing 133.03 mL/min Estimated GFR (MDRD) > 60 (>60) mL/min BUN/Creatinine Ratio 8.0 L (14-18) Glucose 77 (74-106) mg/dL Calcium 7.7 L (8.5-10.1) mg/dL Creatine Kinase 4121 H (26-192) U/L Assesment/Plan: 37-year-old at 16 weeks 6 days with non-traumatic rhabdomyolysis, HD #4 * Doing well overall * Continue to closely monitor I's and O's and the patient's weight for concern for possible fluid overload. * Patient with drop in her creatine kinase from 6547 to 4121 over night. Patient was given 2 normal saline bolus of 1 L each time overnight. Patient currently being treated with normal saline at 350 mL/h. Hospitalist, Dr. Diego , assisting with management of rhabdomyolysis. He recommends to check creatine kinase levels daily and to monitor electrolytes for abnormalities and replace as needed. With drop of CK levels he is ok for discharge of patient. * Mild hypokalemia resolved at this time. Patient to have replacement prior to discharge. * Monitor vitals and heart tones every 4 hours * Patient to be discharged home with drop of creatine kinase to below initial value of approximately 4400. Continue to recommended for her to continue to have daily lab draws and assessment as an outpatient status until CK levels are less than 1000. Lauri Moreno MD 7:31 AM 11/09/17
--- NOTE | 2017-11-09 07:42 | PCM.DCSUM1 ---
Discharge Summary - Hospital Course Free Text/Narrative:: Patient is a 37-year-old 002 female at 16 weeks and 3 days (HUE 04/20/2018) who presented to clinic after having worsening muscle soreness. Reports that this muscle soreness started on Friday after she did some resistance band workouts. She first started noticing some of the soreness in the evening. Worsened over the last several days and has had mild to moderate whole-body muscle soreness. The pain is worst in her right arm and she has had difficulty bending that arm. She is also noticed some decreased weakness in that arm. She has been drinking plenty of water and this has not helped with her symptoms. She denies any fevers or chills. Denies any pain or difficulty with swallowing. Denies any shortness of breath or difficulty with breathing. Denies any significant leg muscle weakness and feels steady with ambulation. She had labs drawn in the clinic today that showed an elevated creatine kinase level of 4400. Patient has never had anything similar to this in the past. She did have mild compartment syndrome in left lower leg in June 2016 after she had a fracture of the tibia that was present for 1.5 weeks or so. No other complications with this except for advancement age. She reports that she had genetic screening testing performed at approximately 9 weeks but the fraction of DNA was too low to be analyzed. She is having this test repeated at this time but results have not returned. Patient has routine care with Dr. Cameron at the [facility] [address] [facility] at the [facility] in [place], [place]. She reports that she denies feeling some movement. Denies any abdominal pain, contractions or pelvic cramping. Denies any leaking fluid or vaginal bleeding. HPI Initial Comments: Patient is a 37-year-old 002 female at 16 weeks and 3 days (HUE 04/20/2018) who presented to clinic after having worsening muscle soreness. Reports that this muscle soreness started on Friday after she did some resistance band workouts. She first started noticing some of the soreness in the evening. Worsened over the last several days and has had mild to moderate whole-body muscle soreness. The pain is worst in her right arm and she has had difficulty bending that arm. She is also noticed some decreased weakness in that arm. She has been drinking plenty of water and this has not helped with her symptoms. She denies any fevers or chills. Denies any pain or difficulty with swallowing. Denies any shortness of breath or difficulty with breathing. Denies any significant leg muscle weakness and feels steady with ambulation. She had labs drawn in the clinic today that showed an elevated creatine kinase level of 4400. Patient has never had anything similar to this in the past. She did have mild compartment syndrome in left lower leg in June 2016 after she had a fracture of the tibia that was present for 1.5 weeks or so. No other complications with this except for advancement age. She reports that she had genetic screening testing performed at approximately 9 weeks but the fraction of DNA was too low to be analyzed. She is having this test repeated at this time but results have not returned. Patient has routine care with Dr. Cameron at the [facility] [address] [facility] at the [facility] in [place], [place]. She reports that she denies feeling some movement. Denies any abdominal pain, contractions or pelvic cramping. Denies any leaking fluid or vaginal bleeding. Brief History: Patient is a 37-year-old 002 female at 16 weeks and 3 days (HUE 04/20/2018) who presented to clinic after having worsening muscle soreness. Reports that this muscle soreness started on Friday after she did some resistance band workouts. She first started noticing some of the soreness in the evening. Worsened over the last several days and has had mild to moderate whole-body muscle soreness. The pain is worst in her right arm and she has had difficulty bending that arm. She is also noticed some decreased weakness in that arm. She has been drinking plenty of water and this has not helped with her symptoms. She denies any fevers or chills. Denies any pain or difficulty with swallowing. Denies any shortness of breath or difficulty with breathing. Denies any significant leg muscle weakness and feels steady with ambulation. She had labs drawn in the clinic today that showed an elevated creatine kinase level of 4400. Patient has never had anything similar to this in the past. She did have mild compartment syndrome in left lower leg in June 2016 after she had a fracture of the tibia that was present for 1.5 weeks or so. No other complications with this except for advancement age. She reports that she had genetic screening testing performed at approximately 9 weeks but the fraction of DNA was too low to be analyzed. She is having this test repeated at this time but results have not returned. Patient has routine care with Dr. Cameron at the [facility] in [place], [place]. She reports that she denies feeling some movement. Denies any abdominal pain, contractions or pelvic cramping. Denies any leaking fluid or vaginal bleeding. - Discharge Data Discharge Date: 11/09/17 Discharge Disposition: Home, Self-Care 01 Condition: Good - Discharge Diagnosis/Problem(s) (1) Rhabdomyolysis SNOMED Code(s): 209625579 ICD Code: M62.82 - RHABDOMYOLYSIS Status: Acute Current Visit: Yes (2) 17 weeks gestation of SNOMED Code(s): 41853285 ICD Code: Z3A.17 - 17 WEEKS GESTATION OF Status: Acute Current Visit: Yes (3) AMA (advanced maternal age) multigravida 35+ SNOMED Code(s): 528634175 ICD Code: O09.529 - SUPERVISION OF ELDERLY MULTIGRAVIDA, UNSPECIFIED TRIMESTER Status: Acute Current Visit: Yes - Patient Summary/Data Operative Procedure(s) Performed: None Complications: None Consults: Consultations 11/07/17 17:35 Consult to Physician [CONS] Routine * Consulted Dr. Beach, hospitalist, for assistance with management of rhabdomyolysis Labs Pending at D/C: Daily BMP and CK levels until CK is less than 1000. assessment daily with heart tone dopplers with lab draws. Hospital Course: Patient was directly admitted from clinic after she was seen there due to muscle soreness and found to have a creatine kinase level of 4400. She was initially admitted and started on lactated Ringer IV fluids at 300 mL/h. In the treating inspector of hospital day #2 lab draw was collected for creatine kinase and increased to 6200 and she was given a liter bolus of D5W with 3 ampules of sodium bicarbonate added at a rate of 300 mL/h. In the morning of hospital day #2 her levels continue to rise to 6800 in the morning and to 7500 in the afternoon. The hospitalist, Dr. Beach, was consulted for additional management assistance with rhabdomyolysis. He recommended the patient be transitioned to normal saline at 300 mL/h. In the evening of hospital day #2 fluid rate was increased to 350 mL/h. In the morning of hospital day #3 her CK levels dropped to 6500. She is continued on normal saline at 350 mL per hour. She had mild hypokalemia which was corrected by the pharmacy through oral replacement. She also had mild hypocalcemia without any evidence of weakness and this was also repleted by pharmacy. In the evening of hospital day #3 she was given a 1 L bolus of normal saline. In the morning of hospital day #4 she was given an additional 1 L bolus of normal saline. Her CK level in the morning of hospital day #4 was 4100. Patient had mild hypokalemia and was repleted by pharmacy protocol. Patient was felt to be safe for discharge at this time. Recommend for patient to continue daily outpatient assessment for BMP and CK levels until it is less than 1000 for her CK. Patient to have filled out for assessment with lab draws. Patient had normal heart tones throughout her hospitalization with heart tones ranging from 130s to 145s. Patient did not have any significant muscle weakness, abdominal pain, pelvic pain, or abdominal or pelvic cramping. Patient will follow-up with her OB for routine obstetrical visit for next scheduled visit. Patient to return to clinic if she has any questions or concerns prior to that visit. - Patient Instructions Diet: Regular Diet as Tolerated Diet, Other: Increase fluid intake until creatine kinase levels have normalized Activity: As Tolerated, No Lifting Over 10 Pounds, No Strenuous Activities Driving: May Drive Today Showering/Bathing: May Shower Notify Provider of: Fever, Increased Pain, Swelling and Redness Other/Special Instructions: Return to Labor and Delivery for daily BMP and CK level check to ensure return to baseline. - Discharge Plan Home Medications: Home Meds Vit with Ca/FA/Iron [ Plus Iron] 1 each PO DAILY tablet [Rx] Patient Handouts: Rhabdomyolysis Referrals: Shyla Cameron MD [Ordering Only Provider] - (As scheduled for next routine OB appointment) - Discharge Summary/Plan Comment DC Time >30 min.: No - Patient Data Vitals - Most Recent: Last Vital Signs Temp 36.7 C 11/09/17 04:04 Pulse 70 11/09/17 04:04 Resp 15 11/09/17 04:04 BP 104/57 L 11/09/17 04:04 Pulse Ox 98 11/09/17 04:04 Weight - Most Recent: 79.016 kg I&O - Last 24 hours: Intake & Output 11/08/17 11/09/17 11/09/17 22:59 06:59 14:59 Intake Total 2840 5200 Output Total 2700 2425 Balance 140 2775 Lab Results - Last 24 hrs: Laboratory Results - last 24 hr 11/09/17 Range/Units 05:59 Sodium 139 (136-145) mEq/L Potassium 3.4 L (3.5-5.1) mEq/L Chloride 108 H (98-107) mEq/L Carbon Dioxide 21 (21-32) mEq/L Anion Gap 13.4 (5-15) BUN 4 L (7-18) mg/dL Creatinine 0.5 L (0.55-1.02) mg/dL Est Cr Clr Drug Dosing 133.03 mL/min Estimated GFR (MDRD) > 60 (>60) mL/min BUN/Creatinine Ratio 8.0 L (14-18) Glucose 77 (74-106) mg/dL Calcium 7.7 L (8.5-10.1) mg/dL Creatine Kinase 4121 H (26-192) U/L Med Orders - Current: Current Medications Acetaminophen (Tylenol) 650 mg PO Q6H PRN PRN Reason: Pain/Fever Calcium Carbonate (Calcium Carbonate/Vitamin D 1500 Mg-200 Unit) 1 tab PO TID [facility] Last Admin: 11/08/17 20:04 Dose: 1 tab Sodium Chloride (Normal Saline) 1,000 mls @ 150 mls/hr IV ASDIRECTED [facility] Last Admin: 11/09/17 05:05 Dose: 350 mls/hr Ondansetron HCl (Zofran) 4 mg IV Q4H PRN PRN Reason: Nausea/Vomiting Potassium Chloride (Pharmacy To Dose - Potassium Replacement) 0 dose .XX ASDIRECTED PRN PRN Reason: RX TO WATCH K LEVELS Prenat Multivit/Cheese Production Supervisor/Iron/Folic Ac ( Plus Iron) 1 each PO DAILY [facility] Last Admin: 11/08/17 08:48 Dose: 1 each Sodium Chloride (Saline Flush) 10 ml FLUSH ASDIRECTED PRN PRN Reason: Keep Vein Open Discontinued Medications Lactated Ringer's (Ringers, Lactated) 1,000 mls @ 300 mls/hr IV ASDIRECTED [facility] Stop: 11/07/17 21:34 Last Admin: 11/06/17 21:35 Dose: 300 mls/hr Lactated Ringer's (Ringers, Lactated) 1,000 mls @ 300 mls/hr IV ASDIRECTED [facility] Last Admin: 11/07/17 01:20 Dose: 300 mls/hr Sodium Bicarbonate 150 meq/ (Dextrose/Water) 1,150 mls @ 300 mls/hr IV ASDIRECTED [facility]UL[facility] Stop: 11/07/17 08:49 Last Admin: 11/07/17 05:31 Dose: 300 mls/hr Lactated Ringer's (Ringers, Lactated) 1,000 mls @ 300 mls/hr IV ASDIRECTED [facility]UL[facility] Last Admin: 11/07/17 16:04 Dose: 300 mls/hr Potassium Chloride (Klor-Con M20) 40 meq PO Q4H [facility] Stop: 11/07/17 18:01 Last Admin: 11/07/17 23:16 Dose: Not Given Potassium Chloride (Klor-Con M20) 40 meq PO Q4H [facility] Stop: 11/08/17 14:01 Last Admin: 11/08/17 14:15 Dose: 40 meq *Q Meaningful Use (DIS) - VTE *Q VTE Criteria *Q: - Stroke *Q Stroke Criteria *Q: - AMI *Q AMI Criteria *Q:
[2017-11-09] MEDS: Calcium Carbonate/Vitamin D3 1500 MG-200 Units Tab PO SCH (08:14)
[2017-11-09] MEDS: Prenatal Multivitamin with Calcium/Folic Acid/Iron Tab PO SCH (08:14)
[2017-11-09] MEDS ORDERED: Potassium Chloride 20 MEQ Tab.ER PO ONE (08:15)
== END 2017-11-09 08:20 | disposition home or self-care (01) | DRG 566 ==
LOC: JD.OB 17:08 → JD.OBCHECK 17:08 → JD.ED 17:08 → EDSTATUS 17:18 → UNDOADMOB 18:02 → JD.OBCHECK 18:02 → JD.OB 18:02 → OBSVTOIN 11-08 10:36 → INTOOBSV 11-08 10:36
PROVIDERS: ADMIT Obstetrics & Gynecology; ATTEND Obstetrics & Gynecology
DX: O26.892 Other specified pregnancy related conditions, second trimester (principal); Z3A.16 16 weeks gestation of pregnancy; M62.82 Rhabdomyolysis; E87.6 Hypokalemia; E83.51 Hypocalcemia
CPT/HCPCS: 36415; 80048; 80053; 81001; 82550; 84550; 85025; 85027; A9270-GY; J7040; J7060; J7120